=== PATIENT | female | born 1955 | race Caucasian/White ===

== ENCOUNTER → 2023-12-20 15:12 | Outpatient (REF) | payer OTHER, SELFPAY | LOC: HWWDC 15:12 | PROVIDERS: ATTENDING PHYSICIAN Obstetrics & Gynecology Gynecology; FAMILY PHYSICIAN Student in an Organized Health Care Education/Training Program | DX: Z12.31 Encounter for screening mammogram for malignant neoplasm of breast (principal) | CPT/HCPCS: 77063; 77067 ==

== ENCOUNTER → 2025-01-08 10:05 | Outpatient (REF) | payer OTHER, SELFPAY | LOC: HWWDC 10:05 | PROVIDERS: ATTENDING PHYSICIAN Obstetrics & Gynecology Gynecology; FAMILY PHYSICIAN Student in an Organized Health Care Education/Training Program | DX: Z12.31 Encounter for screening mammogram for malignant neoplasm of breast (principal) | CPT/HCPCS: 77063; 77067 ==